=== PATIENT | male | born 1950 | race Caucasian/White ===

== ENCOUNTER 2019-02-23 00:02 | Outpatient (CLI) | payer MEDICARE ==
--- NOTE | 2019-02-23 21:24 | EKG ---
Test Reason : Blood Pressure : / mmHG Vent. Rate : 101 BPM Atrial Rate : 101 BPM P-R Int : 152 ms QRS Dur : 132 ms QT Int : 368 ms P-R-T Axes : 066 -71 057 degrees QTc Int : 477 ms Sinus tachycardia Right bundle branch block Left anterior fascicular block Bifascicular block Abnormal ECG No previous ECGs available Confirmed by VIPIN GURROLA, SAnthony ([id number]) on 02/23/2019 9:23:58 PM Referred By: JACQUIE Confirmed By:DR. Beatrice LEW MD
== END 2019-02-23 00:03 | disposition home or self-care (01) ==
LOC: LABBT 00:02
PROVIDERS: ATTEND Orthopaedic Surgery
DX: Z01.818 Encounter for other preprocedural examination (principal); M16.11 Unilateral primary osteoarthritis, right hip
CPT/HCPCS: 87081; 93005; 93010

== ENCOUNTER 2019-02-23 08:45 | Inpatient (IN) | payer MEDICARE, OTHER ==
[2019-02-23 08:21] VITALS: BMI 34.3
[2019-03-07] MEDS ORDERED: Tranexamic Acid 1,000 MG/10 ML VIAL ONE (06:44)
[2019-03-07] MEDS ORDERED: Sodium Chloride 0.9% 100 ML ONE (06:44)
[2019-03-07] MEDS ORDERED: Zolpidem Tartrate 5 MG TAB PO PRN ×2 (07:01→08:30)
[2019-03-07] MEDS ORDERED: Ondansetron PF 4 MG/2 ML Vial IVP PRN ×2 (07:01→08:30)
[2019-03-07] MEDS ORDERED: Promethazine HCl 25 MG/ML VIAL IM PRN ×3 (07:01→10:28)
[2019-03-07] MEDS ORDERED: diphenhydrAMINE 25 MG CAP PO PRN ×2 (07:01→08:30)
[2019-03-07] MEDS ORDERED: HYDROcodone/Acetaminophen 10/325 mg Tablet PO PRN ×2 (07:01)
[2019-03-07] MEDS ORDERED: Acetaminophen 325 MG TAB PO PRN (07:01)
[2019-03-07] MEDS ORDERED: Midazolam HCl 2 mg/2 ml Vial ONE (07:20)
[2019-03-07] MEDS ORDERED: Fentanyl 100 MCG/2 ML VIAL ONE ×3 (07:20→10:14)
[2019-03-07] MEDS ORDERED: Bupivacaine/Epinephrine 0.25% 30 ML VIAL ONE (08:26)
[2019-03-07] MEDS ORDERED: Bupivacaine 0.25% 10 ML VIAL EPIDURAL PRN (08:30)
[2019-03-07] MEDS ORDERED: traMADol HCl 50 MG TAB PO PRN ×2 (08:30)
[2019-03-07] MEDS ORDERED: Hydrocerin (Eucerin) Cream 120 gm Jar TOP PRN (08:30)
[2019-03-07] MEDS ORDERED: diphenhydrAMINE 50 MG/ML VIAL IVP PRN (08:30)
[2019-03-07] MEDS ORDERED: Ketorolac Tromethamine 30 MG/ML VIAL IVP PRN (08:30)
[2019-03-07] MEDS ORDERED: Promethazine HCl 25 MG SUPP PR PRN (08:30)
[2019-03-07] MEDS ORDERED: diphenhydrAMINE 50 MG/ML VIAL IM PRN (08:30)
[2019-03-07] MEDS ORDERED: HYDROcodone/Acetaminophen 5/325 mg Tablet PO PRN (08:30)
[2019-03-07] MEDS ORDERED: Naloxone HCl 0.4 mg/ml Vial IV PRN (08:30)
[2019-03-07] MEDS ORDERED: Naloxone HCl 0.4 mg/ml Vial IVP PRN (08:30)
[2019-03-07] MEDS ORDERED: Non-Formulary Item 1 EACH (Multivitamin [Multivitamins] 1 CAP) PO SCH (09:00)
[2019-03-07] MEDS ORDERED: Fentanyl 5 mcg/Bup 0.075% Cadd 100 ML EPIDURAL ONE (10:27)
[2019-03-07] MEDS ORDERED: Ondansetron HCl/PF 4 MG/2 ML Vial IVP PRN (10:28)
[2019-03-07] MEDS ORDERED: Promethazine HCl 25 MG/ML VIAL SLOW IVP PRN (10:28)
--- NOTE | 2019-03-07 12:13 | RAD ---
RIGHT HIP TWO VIEWS: 03/07/19 HISTORY: Postop total hip arthroplasty. FINDINGS/IMPRESSION: There are recent postop changes of a total hip arthroplasty in good position and alignment. Soft tiss ue air is present. POS: [facility]
--- NOTE | 2019-03-07 12:49 | OP ---
DATE OF PROCEDURE: 03/07/2019 PREOPERATIVE DIAGNOSIS: Degenerative joint disease, right hip. POSTOPERATIVE DIAGNOSIS: Degenerative joint disease, right hip. PROCEDURE PERFORMED: Right total hip arthroplasty using [place] Accolade 4.5 stem, 56 mm socket with a 36 mm ceramic standard head. FISHING BOAT MATE: Micky Aquino PA-C ESTIMATED BLOOD LOSS: 300. SPECIMENS: None. DRAINS: None. COMPLICATIONS: None. PROCEDURE IN DETAIL: After informed consent was obtained in the preoperative holding area, the patient was taken to the operative suite where general anesthesia was induced. The patient was then positioned in the lateral decubitus position. The hip was then prepped and draped in usual sterile fashion. The patient received preoperative antibiotics. Prior to incision, time-out was called and all members of the surgical team agreed upon site, surgeon, and patient. After this, a longitudinal incision was made directly over the trochanter, noted by palpation extending 2 fingerbreadths above and below the trochanter. The deeper subcutaneous layer was undermined with Bovie electrocautery. The iliotibial band was encountered and incised sharply and the plane below this was developed bluntly. A Charnley retractor was placed to hold this opened. The lateral aspect of the trochanter and the abductor muscles were encountered and then reflected anteriorly off the trochanter using Bovie electrocautery. Once this was completed, the anterior capsule was then encountered and identified and copious capsulotomy was carried out, exposing the femoral neck and head. Dislocation maneuver was then performed and an in situ provisional neck cut was then made using the oscillating saw. Attention was then turned to acetabular preparation and sequential reaming was carried out up to the appropriate diameter. A trial was then malleted into place with good firm resistance and no pullout. The permanent acetabular shell was then malleted squarely into place, as was the appropriate liner. Once completed, the wound was copiously irrigated and attention was then turned to femoral preparation. Flexion and external rotation were performed of the exposed thigh and femoral elevators were then placed at the proximal aspect of the wound. Canal finder was used to establish the length of the canal and sequential reaming was carried out, followed by broaching. Once the appropriate stability was established with the trial broaches with flexion, extension and rotational stability, we did trial with neutral and 2 mm offset incremental necks. Once the appropriate size was decided upon, with good stability noted with flexion, extension, internal and external rotation and shuck being negative, we removed the femoral trial broach and malletted into place the permanent prosthesis with good firm fit, which was also stable to rotation. Again, the hip felt very stable to flexion, extension, internal and external rotation. Leg lengths appeared near anatomic clinically and we were quite happy with prosthesis placement. Copious irrigation was then carried out through the entirety of the wound. Primary closure of the abductors was accomplished with interrupted #2 Vicryl [id number] stitches and the IT band was then closed with interrupted #2 Vicryl, oversewn with a #2 running barbed Quill stitch. Subcutaneous fascia was closed with running barbed Quill stitch and a subcuticular Monocryl barbed Quill stitch was used for skin closure and augmented with skin cement. A sterile dressing was applied. The procedure was terminated without any complication. All counts were correct. The patient was awakened in the operative suite and taken to the recovery room in stable condition. Job ID: [id number]
[2019-03-07] MEDS: Aspirin 81 mg Enteric Coated Tablet PO SCH ×2 (13:04→21:01)
[2019-03-07] MEDS: metFORMIN 500 MG TAB PO SCH ×2 (13:04→17:50)
[2019-03-07] MEDS: Sodium Chloride 0.9% 1,000 ML IV SCH ×2 (13:04→17:50)
[2019-03-07] MEDS ORDERED: Ketorolac Tromethamine 30 MG/ML VIAL IVP SCH (14:00)
[2019-03-07] MEDS ORDERED: Rocuronium Bromide 10 MG/ML (10ML VIAL) ONE (14:27)
[2019-03-07] MEDS ORDERED: Lidocaine 1% PF 5 ML VIAL ONE (14:27)
[2019-03-07] MEDS ORDERED: PROPOFOL 200 MG/20 ML VIAL ONE (14:27)
[2019-03-07] MEDS ORDERED: PHENYLEPHRINE-NS 100 MCG/ML 10 ML SYRINGE ONE (14:27)
[2019-03-07] MEDS ORDERED: Ondansetron PF 4 MG/2 ML Vial ONE (14:27)
[2019-03-07] MEDS ORDERED: ePHEDrine 50 MG/ML VIAL ONE (14:27)
[2019-03-07] MEDS: CEFAZOLIN 2 GM in Premix Bag 1 BAG IVPB SCH ×2 (14:56→22:39)
--- NOTE | 2019-03-07 18:24 | PDOC.PN ---
- Subjective Encounter Start Date: 03/07/19 Encounter Start Time: 18:10 Subjective: Consult for med mgmt. s/p R NIKKI with DJD, HTN, DM. Feels ok overall -: and no pain currently. No CP, SOB or N/V - Objective MAR Reviewed: Yes Vital Signs & Weight: Vital Signs (12 hours) Temp Pulse Resp BP Pulse Ox 03/07/19 17:52 98.6 F 103 H 16 133/71 98 03/07/19 12:00 97.7 F 88 16 103/68 97 Weight Weight 275 lb Additional Labs: Laboratory Tests 03/01/19 03/01/19 11:15 11:15 WBC 6.7 Hgb 15.0 Hct 43.0 Plt Count 218 Sodium 137 Potassium 4.1 Chloride 106 Carbon Dioxide 22 L Anion Gap 13 BUN 15 Creatinine 1.01 Estimated GFR (MDRD) 73 Glucose 182 H Calcium 9.7 EKG Reviewed by me: Yes (Sinus tachycardia, RBBB, Bifascicular block) Phys Exam - Physical Examination Constitutional: NAD HEENT: PERRLA, sclera anicteric, oral pharynx no lesions Neck: no nodes, no JVD, supple, full ROM Respiratory: no wheezing, no rales, no rhonchi, clear to auscultation bilateral S1, S2 Cardiovascular: RRR, no significant murmur, no rub, gallop Gastrointestinal: soft, non-tender, no distention, positive bowel sounds R hip edema, surgical dressing in place Musculoskeletal: pulses present Neurological: normal sensation, moves all 4 limbs Psychiatric: A&O x 3 Skin: normal turgor, cap refill <2 seconds Dx/Plan (1) DM II (diabetes mellitus, type II), controlled Code(s): E11.9 - TYPE 2 DIABETES MELLITUS WITHOUT COMPLICATIONS Status: Chronic Comment: ISS, serial accuchecks, Metformin 500mg BID, ADA (2) HTN (hypertension) Code(s): I10 - ESSENTIAL (PRIMARY) HYPERTENSION Status: Chronic Qualifiers: Hypertension type: essential hypertension Qualified Code(s): I10 - Essential (primary) hypertension Comment: Resume Enalapril and Hytrin, serial monitoring (3) Degenerative joint disease Code(s): M19.90 - UNSPECIFIED OSTEOARTHRITIS, UNSPECIFIED SITE Status: Chronic Qualifiers: Osteoarthritis location: hip Laterality: right Comment: See below (4) Status post total hip replacement, right Code(s): Z96.641 - PRESENCE OF RIGHT ARTIFICIAL HIP JOINT Status: Acute Comment: pain control, Joint U protocol, nerve block, DVT ppx - Plan PT/OT, older adult social work specialist, incentive spirometry, out of bed/ambulate, DVT proph w/ SCDs Stable currently -: Reviewed all hx, labs, rads and EKG's -: Resume Enalapril and Hytrin -: ISS for glycemic control -: AM lab: CBC * Thank you for the consult. Will continue to follow with primary service.
[2019-03-07] MEDS: Famotidine 20 MG TAB PO SCH (21:01)
[2019-03-07] MEDS: Terazosin HCl 5 MG CAP PO SCH (21:02)
[2019-03-07] MEDS: HYDROcodone/Acetaminophen 5/325 mg Tablet PO PRN (22:05)
[2019-03-08] MEDS: Fentanyl 5 mcg/Bup 0.075% Cadd 100 ML EPIDURAL SCH ×2 (02:23→19:16)
[2019-03-08 05:02] LABS: Hemoglobin 12.1 g/dL (14.0-18.0); Mean Corpuscular HGB CONC 33.3 g/dL (32.0-36.0); Mean Corpuscular Hemoglobin 31.3 pg (27.0-31.0); Mean Corpuscular Volume 93.9 fL (78.0-98.0); Mean Platelet Volume 7.5 fL (7.4-10.4); Platelet Count 171 thou/uL (130-400); RBC Distribution Width 12.3 % (11.5-14.5); Red Blood Cell (RBC) Count 3.87 mill/uL (4.70-6.10); White Blood Cell (WBC) Count 10.9 thou/uL (4.8-10.8)
[2019-03-08] MEDS: Sodium Chloride 0.9% 1,000 ML IV SCH ×3 (07:15→19:51)
--- NOTE | 2019-03-08 07:23 | PRG ---
DATE OF SERVICE: 03/08/2019 SUBJECTIVE: Kale is a 68-year-old white male, postop day #1 right total hip arthroplasty. He is doing relatively well. He has no complaints. He had difficulty sleeping last night and therefore he slept in the chair, but otherwise he did walk 160 feet yesterday evening. OBJECTIVE: VITAL SIGNS: Temperature 99, pulse 108, respiratory rate 20, blood pressure is 106/55. GENERAL: He is alert and oriented to person, place, time, situation, grossly nonfocal, and appropriate with examiner. EXTREMITIES: There is no strike through in his incision. His leg lengths were symmetric. There is no shortening or external rotation. LABORATORY DATA: Hemoglobin and hematocrit 12.1 and 36.3. IMPRESSION: 1. A 68-year-old white male, postop day #1 right total hip arthroplasty. 2. Mild postoperative asymptomatic hemorrhagic anemia. PLAN: Continue current care. He will be scheduled for transfer day after tomorrow to [facility]. Job ID: [id number]
[2019-03-08] MEDS: metFORMIN 500 MG TAB PO SCH ×2 (08:35→16:45)
[2019-03-08] MEDS: Ferrous Gluconate 324 MG TAB PO SCH ×2 (08:35→16:45)
[2019-03-08] MEDS: Aspirin 81 mg Enteric Coated Tablet PO SCH ×2 (08:35→19:58)
[2019-03-08] MEDS: HYDROcodone/Acetaminophen 5/325 mg Tablet PO PRN (08:35)
[2019-03-08] MEDS: Multivitamin W/ Minerals 1 TAB PO SCH (08:35)
[2019-03-08] MEDS: Senokot S 8.6-50 MG TAB PO SCH ×2 (08:35→19:58)
--- NOTE | 2019-03-08 08:44 | RAD ---
FRONTAL VIEW CHEST: Comparison: None available. Indication: Hypoxia. FINDINGS: Lungs are hyperinflated. There is no lobar consolidation, effusion, or pneumothorax. Cardiac silhouet te is accentuated by the portable technique. There is osseous degenerative change. IMPRESSION: 1. No focal consolidation. 2. Hyperinflated lungs indicating COPD. Correlate clinically. POS: OFF
[2019-03-08] MEDS ORDERED: Iopamidol 370 76% 100 ML VIAL ONE (10:34)
--- NOTE | 2019-03-08 11:09 | CT ---
Exam: CTA of the chest HISTORY: Fever and tachycardia COMPARISON: None TECHNIQUE: Multiple contiguous axial images were obtained a CTA of the chest with contrast per pulmon rebeca embolism protocol. 3-D oblique MIP reformats and direct coronal reformats were performed. FINDINGS: HEART: Normal in size without focal cardiac abnormality. Calcifications are seen in the coronary domonique diamante. PULMONARY ARTERIES: Normal in caliber without filling defects to suggest pulmonary emboli. MEDIASTINUM: No hilar or mediastinal lymphadenopathy. LUNGS: No focal infiltrates or masses. PLEURAL SPACE: No pleural effusion or pneumothorax. CHEST WALL SOFT TISSUES: Unremarkable VISUALIZED OSSEOUS STRUCTURES: Unremarkable VISUALIZED SUBDIAPHRAGMATIC STRUCTURES: No acute abnormality. The patient is status post cholecystect keanu. IMPRESSION: No evidence of pulmonary thromboembolism
--- NOTE | 2019-03-08 13:26 | PDOC.PN ---
- Subjective Encounter Start Date: 03/08/19 Encounter Start Time: 13:15 Subjective: f/u s/p R NIKKI POD #1 with nursing noting fever and tachycardia. -: Pt denies prominent cough, diarrhea. Appetite ok. No CP, n/v. - Objective MAR Reviewed: Yes Vital Signs & Weight: Vital Signs (12 hours) Temp Pulse Pulse Resp BP BP Pulse Ox 03/08/19 12:28 100 F H 113 H 16 105/65 93 L 03/08/19 11:25 100.8 F H 113 H 20 101/64 91 L 03/08/19 08:53 126 H 99/57 L 03/08/19 08:35 100.8 F H 123 H 22 H 113/65 93 L 03/08/19 06:52 98 03/08/19 04:00 99 F 108 H 20 106/55 L 98 Pulse Ox 03/08/19 12:28 03/08/19 11:25 03/08/19 08:53 92 L 03/08/19 08:35 03/08/19 06:52 03/08/19 04:00 Weight Weight 275 lb I&O: 03/07/19 03/08/19 03/09/19 06:59 06:59 06:59 Intake Total 1250 930 Output Total 500 1150 Balance 750 -220 Result Diagrams: 03/08/19 04:34 Additional Labs: Accuchecks 03/08/19 03/08/19 03/07/19 11:20 06:01 20:43 POC Glucose 161 H 145 H 147 H Radiology Reviewed by me: Yes (CTA chest - neg PE, PCXR - no acute infiltrates) EKG Reviewed by me: Yes (Tele - Sinus tachycardia) Phys Exam - Physical Examination Constitutional: NAD HEENT: PERRLA, sclera anicteric, oral pharynx no lesions Neck: no nodes, no JVD, supple, full ROM Respiratory: no wheezing, no rales, no rhonchi, clear to auscultation bilateral S1, S2 Cardiovascular: RRR, no significant murmur, no rub, gallop Gastrointestinal: soft, non-tender, no distention, positive bowel sounds R hip edema and surgical dressing in place Musculoskeletal: pulses present Neurological: normal sensation, moves all 4 limbs Psychiatric: A&O x 3 Skin: normal turgor, cap refill <2 seconds Deviation from normal: Fernández cath in place with maryam urine Dx/Plan (1) DM II (diabetes mellitus, type II), controlled Code(s): E11.9 - TYPE 2 DIABETES MELLITUS WITHOUT COMPLICATIONS Status: Chronic Comment: ISS, serial accuchecks, Metformin 500mg BID, ADA (2) HTN (hypertension) Code(s): I10 - ESSENTIAL (PRIMARY) HYPERTENSION Status: Chronic Qualifiers: Hypertension type: essential hypertension Qualified Code(s): I10 - Essential (primary) hypertension Comment: Resume Enalapril and Hytrin, serial monitoring (3) Degenerative joint disease Code(s): M19.90 - UNSPECIFIED OSTEOARTHRITIS, UNSPECIFIED SITE Status: Chronic Qualifiers: Osteoarthritis location: hip Laterality: right Comment: See below (4) Febrile Code(s): R50.9 - FEVER, UNSPECIFIED Status: Acute Comment: post-op fever noted, no focal etiology currently and no evidence for pneumonia or PE, continue IS, Tylenol/Toradol, clinical monitoring, remove Fernández catheter (5) Status post total hip replacement, right Code(s): Z96.641 - PRESENCE OF RIGHT ARTIFICIAL HIP JOINT Status: Acute Comment: pain control, Joint U protocol, nerve block, DVT ppx - Plan PT/OT, respiratory therapy, incentive spirometry, out of bed/ambulate, DVT proph w/SCDs Stable currently -: Incentive spirometry -: OOB with PT -: Tylenol/Toradol prn for fever -: Recommend d/c Fernández * AM lab: CBC * Plan for rehab at [facility] in 24-48h
[2019-03-08] MEDS ORDERED: Digoxin 0.5 MG/2 ML AMP SLOW IVP SCH (19:00)
[2019-03-08] MEDS: Diltiazem HCl 125 MG, Admixture Fee 1 EACH in Sodium Chloride 0.9% 100 ML IVPB SCH (19:52)
[2019-03-08] MEDS: Terazosin HCl 5 MG CAP PO SCH (19:58)
[2019-03-08] MEDS: Famotidine 20 MG TAB PO SCH (19:58)
[2019-03-09] MEDS: Sodium Chloride 0.9% 1,000 ML IV SCH ×2 (04:23→04:59)
[2019-03-09] MEDS: Diltiazem HCl 125 MG, Admixture Fee 1 EACH in Sodium Chloride 0.9% 100 ML IVPB SCH (04:59)
[2019-03-09 05:57] LABS: Hemoglobin 11.6 g/dL (14.0-18.0); Mean Corpuscular HGB CONC 33.6 g/dL (32.0-36.0); Mean Corpuscular Hemoglobin 31.5 pg (27.0-31.0); Mean Corpuscular Volume 93.7 fL (78.0-98.0); Mean Platelet Volume 7.6 fL (7.4-10.4); Platelet Count 169 thou/uL (130-400); RBC Distribution Width 12.3 % (11.5-14.5); White Blood Cell (WBC) Count 12.2 thou/uL (4.8-10.8)
--- NOTE | 2019-03-09 08:04 | PRG ---
DATE OF SERVICE: 03/09/2019 SUBJECTIVE: Kale has been moved to telemetry for monitoring since he has new onset atrial fibrillation from yesterday evening. Dr. Downey has evaluated the patient and initiated treatment plan for this. Otherwise, the patient feels fine this morning. He has no complaints of pain. OBJECTIVE: VITAL SIGNS: Temperature 97.7, pulse 88, respiratory rate 16, blood pressure is 119/56. GENERAL: He is alert, oriented to person, place, time, situation, grossly nonfocal, appropriate with the examiner. His incision is clean, closed. No new strikethrough. EXTREMITIES: He is neurovascularly intact in the right lower extremity. Leg lengths are equal. No external rotation appreciated. IMPRESSION: 1. A 68-year-old white male, postop day #2 right total hip arthroplasty. 2. New onset atrial fibrillation. 3. Mild postoperative hemorrhagic asymptomatic anemia. PLAN: Continue current care. Recheck tomorrow. Transfer to [facility] possibly tomorrow. Job ID: [id number]
[2019-03-09] MEDS: Senokot S 8.6-50 MG TAB PO SCH ×2 (08:40→21:05)
[2019-03-09] MEDS: metFORMIN 500 MG TAB PO SCH ×2 (08:40→18:30)
[2019-03-09] MEDS: Ferrous Gluconate 324 MG TAB PO SCH ×2 (08:40→18:30)
[2019-03-09] MEDS: Multivitamin W/ Minerals 1 TAB PO SCH (08:40)
[2019-03-09] MEDS: Aspirin 81 mg Enteric Coated Tablet PO SCH ×2 (08:41→21:05)
[2019-03-09] MEDS ORDERED: HYDROcodone/Acetaminophen 10/325 mg Tablet PO PRN ×2 (12:15→12:17)
--- NOTE | 2019-03-09 13:48 | PDOC.PN ---
- Subjective Encounter Start Date: 03/09/19 Encounter Start Time: 13:47 Mr. Kc was seen today in follow-up of Medical management post Hip replacement surgery - Objective MAR Reviewed: Yes Vital Signs & Weight: Vital Signs (12 hours) Temp Pulse Pulse Pulse Pulse Pulse Resp 03/09/19 11:51 97.8 F 93 20 03/09/19 10:45 89 91 106 H 110 H 03/09/19 07:55 98.6 F 92 20 03/09/19 07:30 03/09/19 03:57 97.7 F 88 16 BP BP BP Pulse Ox Pulse Ox Pulse Ox Pulse Ox 03/09/19 11:51 137/63 96 03/09/19 10:45 113/74 138/65 95 96 96 03/09/19 07:55 131/60 96 03/09/19 07:30 95 03/09/19 03:57 119/56 L 92 L Pulse Ox 03/09/19 11:51 03/09/19 10:45 96 03/09/19 07:55 03/09/19 07:30 03/09/19 03:57 Weight Admit Weight 275 lb Weight 275 lb I&O: 03/08/19 03/09/19 03/10/19 06:59 06:59 06:59 Intake Total 1250 3900 Output Total 500 2850 Balance 750 1050 Result Diagrams: 03/09/19 05:37 Additional Labs: Accuchecks 03/09/19 03/09/19 03/08/19 10:33 05:48 16:12 POC Glucose 166 H 133 H 199 H Phys Exam - Physical Examination HEENT: PERRLA Respiratory: no wheezing, no rales, no rhonchi, clear to auscultation bilateral Cardiovascular: RRR, no significant murmur, no rub Gastrointestinal: soft, non-tender, no distention, positive bowel sounds Musculoskeletal: no edema, pulses present Dx/Plan (1) Atrial fibrillation Code(s): I48.91 - UNSPECIFIED ATRIAL FIBRILLATION Status: Acute (2) Status post total hip replacement, right Code(s): Z96.641 - PRESENCE OF RIGHT ARTIFICIAL HIP JOINT Status: Acute Comment: pain control, Joint U protocol, nerve block, DVT ppx (3) DM II (diabetes mellitus, type II), controlled Code(s): E11.9 - TYPE 2 DIABETES MELLITUS WITHOUT COMPLICATIONS Status: Chronic Comment: ISS, serial accuchecks, Metformin 500mg BID, ADA (4) Degenerative joint disease Code(s): M19.90 - UNSPECIFIED OSTEOARTHRITIS, UNSPECIFIED SITE Status: Chronic Qualifiers: Osteoarthritis location: hip Laterality: right Comment: See below (5) HTN (hypertension) Code(s): I10 - ESSENTIAL (PRIMARY) HYPERTENSION Status: Chronic Qualifiers: Hypertension type: essential hypertension Qualified Code(s): I10 - Essential (primary) hypertension Comment: Resume Enalapril and Hytrin, serial monitoring - Plan * AFIB with RVR- it is noted that the patient developed AFIB with RVR and was placed on a Cardizem drip- he tells me he has never had AFIB before or was told he had an " irregular heart beat"- Will check an ECHO and Consult Cardiology * HTN - blood pressure is stable * DM- blood glucose is stable
--- NOTE | 2019-03-09 18:20 | CON ---
DATE OF CONSULTATION: HISTORY OF PRESENT ILLNESS: The patient is a 68-year-old gentleman, who presents for evaluation of an irregular heart rhythm. The patient has no previous cardiac history. The patient just underwent a hip surgery. The patient was found to have a rapid heart rate when he was undergoing physical therapy. He denied having any palpitations. The patient did not have any chest pain or chest discomfort. PAST MEDICAL HISTORY: Significant for; 1. Hypertension. 2. Diabetes mellitus. PAST SURGICAL HISTORY: He has had hip surgery, cholecystectomy, ankle surgery. SOCIAL HISTORY: Nonsmoker. FAMILY HISTORY: No strong family history of heart disease. MEDICATIONS: On admission; 1. Metformin 500 twice a day. 2. Hytrin 10 daily. 3. Enalapril 20 daily. 4. Aspirin 325 daily. 5. Zantac 150 daily. 6. Ibuprofen 400 b.i.d. REVIEW OF SYSTEMS: Ten-point system otherwise unremarkable. PHYSICAL EXAMINATION: GENERAL: Obese gentleman, in no acute distress. VITAL SIGNS: Blood pressure is 140/68. NECK: Showed no jugular venous distention. LUNGS: Clear to auscultation. HEART: Regular rate and rhythm. Normal S1, S2 with 1/6 systolic murmur. ABDOMEN: Distended. EXTREMITIES: Show mild edema. VASCULAR: Radial pulses are 2+. LABORATORY DATA: White blood cell count 12.2, hemoglobin 11.6, hematocrit 34.7, platelets are 169. His EKG revealed sinus tachycardia with a right bundle branch block and left anterior fascicular block. Second EKG revealed atrial fibrillation, right bundle-branch block, left anterior fascicular block. IMPRESSION: 1. New onset atrial fibrillation. 2. Hypertension. 3. Diabetes mellitus. 4. Obesity. 5. 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 This patient presents with new onset atrial fibrillation converted with IV Cardizem. We will start the patient on a low dose of Toprol. The patient has a CHADS-VASc score of 3, so he will need to be long-term on NOAC. We will check the patient's echocardiogram. We will follow this patient with you through his hospitalization. Please call my office. Job ID: [id number]
[2019-03-09] MEDS ORDERED: Metoprolol Tartrate 25 MG TAB PO SCH (19:15)
[2019-03-09] MEDS: Famotidine 20 MG TAB PO SCH (21:05)
[2019-03-09] MEDS: Terazosin HCl 5 MG CAP PO SCH (21:06)
[2019-03-10] MEDS: metFORMIN 500 MG TAB PO SCH (09:48)
[2019-03-10] MEDS: Senokot S 8.6-50 MG TAB PO SCH (09:48)
[2019-03-10] MEDS: Multivitamin W/ Minerals 1 TAB PO SCH (09:48)
[2019-03-10] MEDS: Aspirin 81 mg Enteric Coated Tablet PO SCH (09:48)
[2019-03-10] MEDS: Ferrous Gluconate 324 MG TAB PO SCH (09:48)
[2019-03-10 12:15] VITALS: TEMP 99.4
[2019-03-10 13:46] VITALS: BP 131/58
[2019-03-10] MEDS ORDERED: Apixaban 5 MG TAB PO SCH (21:00)
--- NOTE | 2019-03-11 03:01 | DIS ---
DATE OF ADMISSION: 03/07/2019 DATE OF DISCHARGE: 03/10/2019 DISCHARGE DISPOSITION: To senior living unit. DISCHARGE DIAGNOSES: 1. Atrial fibrillation with rapid ventricular response. 2. Severe osteoarthritis. 3. Status post right total hip replacement. 4. Diabetes mellitus, type 2. 5. Hypertension. DISCHARGE MEDICATIONS: Include: 1. Eliquis 5 mg twice a day. 2. Terazosin 10 mg at bedtime. 3. Ranitidine 150 mg at bedtime. 4. Multivitamin once a day. 5. Metformin 500 mg twice daily. 6. Glucosamine/chondroitin 1 tablet daily. 7. Enalapril 20 mg at bedtime. PROCEDURES DONE DURING ADMISSION: The patient had a CT angiogram of the chest, which showed no evidence of pulmonary embolism. The patient also had an echocardiogram, showing this was technically inadequate. There was impaired relaxation, compatible with diastolic dysfunction. The ejection fraction was not estimated. CODE STATUS: Full code. ALLERGIES: NO KNOWN DRUG ALLERGIES. HOSPITAL COURSE: Mr. Kc is a pleasant 68-year-old gentleman, who was admitted for an elective right total knee replacement. The patient had the procedure done on 03/07/2019. Postoperatively, he developed atrial fibrillation with rapid ventricular response. He was transferred to the telemetry unit, and the Hospitalist Service was consulted. He was placed on a Cardizem drip. Cardiology was consulted, and he was eventually transitioned to metoprolol for rate control and placed on Eliquis for stroke prevention, and after this, he was able to be transferred to the senior living unit for continued rehabilitation from his total hip replacement. Job ID: [id number]
== END 2019-03-10 15:18 | DRG 470 ==
LOC: SJJU 03-07 06:15 → 2NO 03-08 18:00
PROVIDERS: ADMIT Orthopaedic Surgery; ATTEND Orthopaedic Surgery
PROC: 0SR9039 Replacement of Right Hip Joint with Ceramic Synthetic Substitute, Cemented, Open Approach (ICD-10-PCS; principal; 2019-03-07)
DX: M16.11 Unilateral primary osteoarthritis, right hip (principal); I45.2 Bifascicular block; I10 Essential (primary) hypertension; E11.9 Type 2 diabetes mellitus without complications; E66.9 Obesity, unspecified; D64.9 Anemia, unspecified; R50.9 Fever, unspecified; I48.91 Unspecified atrial fibrillation; Z68.34 Body mass index [BMI] 34.0-34.9, adult; Z90.49 Acquired absence of other specified parts of digestive tract; Z79.82 Long term (current) use of aspirin; Z79.84 Long term (current) use of oral hypoglycemic drugs; Z79.899 Other long term (current) drug therapy
CPT/HCPCS: 36415; 36416; 71045; 71275; 85027; 93005; 93010; 93306; J0690; J1160; J1200; J2001; J2250; J2405; J2704; J3010; J3370; J3490; J7050; Q9967

== ENCOUNTER 2019-03-01 11:07 | Outpatient (CLI) | payer MEDICARE ==
[2019-03-01 11:32] LABS: #Basophils 0.1 thou/uL (0.0-0.2); #Eosinphils 0.2 thou/uL (0.0-0.7); #Lymphocytes 1.3 thou/uL (1.20-3.40); #Monocytes 0.6 thou/uL (0.11-0.59); #Neutrophils 4.5 thou/uL (1.40-6.50); %Basophils 0.8 % (0.0-1.0); %Eosinophils 3.7 % (0.0-10.0); %Lymphocytes 19.9 % (21.0-51.0); %Monocytes 8.8 % (0.0-10.0); %Neutrophils 66.8 % (42.0-75.0); Mean Corpuscular HGB CONC 34.9 g/dL (32.0-36.0); Mean Corpuscular Hemoglobin 31.9 pg (27.0-31.0); Mean Corpuscular Volume 91.5 fL (78.0-98.0); Mean Platelet Volume 7.6 fL (7.4-10.4); Platelet Count 218 thou/uL (130-400); RBC Distribution Width 12.4 % (11.5-14.5); White Blood Cell (WBC) Count 6.7 thou/uL (4.8-10.8)
[2019-03-01 11:38] LABS: Prothrombin Time 13.3 SEC (12.0-14.7)
[2019-03-01 11:52] LABS: Anion Gap 13 mmol/L (10-20); BUN (Urea Nitrogen) 15 mg/dL (8.4-25.7); Calc. Creatinine Clearance 0 mL/min (70-130); Calcium 9.7 mg/dL (7.8-10.44); Carbon Dioxide 22 mmol/L (23-31); Chloride 106 mmol/L (98-107); Estimated GFR-MDRD 73; Glucose 182 mg/dL (80-115); Potassium 4.1 mmol/L (3.5-5.1)
[2019-03-01 12:18] LABS: Sodium 137 mmol/L (136-145)
== END 2019-03-01 11:08 | disposition home or self-care (01) ==
LOC: LABBT 11:07
PROVIDERS: ATTEND Orthopaedic Surgery
DX: Z01.812 Encounter for preprocedural laboratory examination (principal); M16.11 Unilateral primary osteoarthritis, right hip
CPT/HCPCS: 80048; 85025; 85610; 86850; 86900; 86901

== ENCOUNTER 2020-03-29 09:52 | Outpatient (CLI) | payer MEDICARE, OTHER ==
--- NOTE | 2020-03-29 14:35 | RAD ---
LUMBAR SPINE: 03/29/20 Three views. Lateral views were obtained in neutral flexion and extension. INDICATIONS: Back pain. There are no comparison studies. Correlation made to a prior CT abdomen and pelvis from 2016 to asses s the number of lumbar vertebrae. There is a transitional vertebrae present. This transitional verteb ra will be labeled as S1 on this exam. There may be rudimentary ribs at the L1 level as noted on the prior CT. Vertebral bodies maintain height. There is mild chronic appearing wedging at L1 and L2. The degenerat domitila disc changes are most prominent at L5-S1 where there is loss of disc space with prominent anterio r osteophytes. There is a grade I spondylolisthesis at L5-S1. There is evidence of posterior spondylo lysis at this level. This anterolisthesis does not appear to significantly change with flexion or extension. Prominent facet hypertrophy. IMPRESSION: There is a transitional vertebra which is labeled as S1 on this exam. There is prominent degenerative disc changes and hypertrophic spurring at L5-S1 with a grade I anterolisthesis at L5-S1 and evidence of posterior spondylolysis. POS: [facility]
--- NOTE | 2020-03-29 15:24 | MRI ---
MRI LUMBAR SPINE WITHOUT CONTRAST: Date: 03/29/2020 COMPARISON: None. HISTORY: Chronic back pain, low back pain for months. TECHNIQUE: Multiplanar, multisequence MR imaging of the lumbar spine is provided without contrast media. FINDINGS: The sagittal STIR imaging demonstrates no focal area of osseous marrow edema. The sagittal STIR imaging demonstrates no focal area of osseous marrow edema. On the basis of five lumbar-type vertebral bodies, conus medullaris terminates at the T12-L1 level. T12-L1: There is bilateral facet hypertrophy. Intervertebral disc height and signal intensity within normal limits with no central canal or neural foraminal stenosis. L1-2: Mild bilateral facet hypertrophy. Intervertebral disc height and signal intensity within meli l limits with no significant central canal or neural foraminal stenosis. L2-3: There is disc space narrowing with disc desiccation and mild disc bulge. Bilateral facet hyper trophy noted. Mild central canal stenosis. Mild right neural foraminal stenosis. No significant left neural foraminal stenosis. L3-4: Bilateral facet hypertrophy with hypertrophy of ligamentum flavum. No significant central danilo l stenosis. Moderate right and mild left neural foraminal stenosis. L4-5: Bilateral L4 pars defects are suspected with anterolisthesis of L4 on L5 measuring 9.0 mm. The re is disc space narrowing with disc desiccation at L4-5. No central canal stenosis. There is severe neural foraminal stenosis bilaterally, right greater than left, with mass effect on the exiting bilat eral L4 nerve roots, right greater than left. L5-S1: There is narrowing of the intervertebral disc and mild disc desiccation. Mild bilateral facet hypertrophy with no significant central canal or neural foraminal stenosis is seen. The visualized retroperitoneal structures appear grossly unremarkable. Please note that there is a transitional L5 vertebral body and probable hypoplastic T12 ribs. IMPRESSION: Bilateral L4 pars defects with anterolisthesis of L4 on L5 and associated bilateral neural foraminal stenosis, right greater than left. Please note that there are probable hypoplastic ribs at T12 and a sacralized/transitional L5 vertebral body. Please see images on PACS for labeling of the vertebral emy dies. POS: [facility]
== END 2020-03-29 09:53 | disposition home or self-care (01) ==
LOC: SCSMRI 09:52
PROVIDERS: ATTEND Specialist
DX: M54.5 Low back pain (principal); M54.16 Radiculopathy, lumbar region; M51.37 Other intervertebral disc degeneration, lumbosacral region; M43.07 Spondylolysis, lumbosacral region; M48.061 Spinal stenosis, lumbar region without neurogenic claudication
CPT/HCPCS: 72100; 72148

== ENCOUNTER 2021-10-14 12:44 | Outpatient (CLI) | payer MEDICARE, BC | END 2021-10-14 12:45 | disposition home or self-care (01) | LOC: BICMRI 12:44 | PROVIDERS: ATTEND Specialist | DX: M51.16 Intervertebral disc disorders with radiculopathy, lumbar region (principal); M43.16 Spondylolisthesis, lumbar region; M47.26 Other spondylosis with radiculopathy, lumbar region; M48.061 Spinal stenosis, lumbar region without neurogenic claudication | CPT/HCPCS: 72110; 72148 ==

== ENCOUNTER 2023-06-28 10:00 | Observation (INO) | payer MEDICARE, BC ==
[2023-06-28 10:54] LABS: #Monocytes 1.3 thou/uL (0.11-0.59); #Neutrophils 5.7 thou/uL (1.40-6.50); %Basophils 0.5 % (0.0-1.0); %Eosinophils 0.4 % (0.0-10.0); %Lymphocytes 9.5 % (21.0-51.0); %Monocytes 16.2 % (0.0-10.0); %Neutrophils 72.8 % (42.0-75.0); Hematocrit 37.5 % (42.0-52.0); Hemoglobin 13.1 g/dL (14.0-18.0); Mean Corpuscular HGB CONC 34.9 g/dL (32.0-36.0); Mean Corpuscular Hemoglobin 30.6 pg (27.0-31.0); Mean Corpuscular Volume 87.6 fl (78.0-98.0); Platelet Count 165 10x3/uL (130-400); RBC Distribution Width 13.2 % (11.5-14.5); Red Blood Cell (RBC) Count 4.28 mill/uL (4.70-6.10); White Blood Cell (WBC) Count 7.9 10x3/uL (4.8-10.8)
[2023-06-28 11:18] LABS: ALT (SGPT) 29 U/L (8-55); AST (SGOT) 27 U/L (5-34); Albumin 3.3 g/dL (3.4-4.8); Alkaline Phosphatase 48 U/L (40-110); Anion Gap 16 mmol/L (10-20); BUN (Urea Nitrogen) 18 mg/dL (8.4-25.7); Calc. Creatinine Clearance 0 mL/min (70-130); Carbon Dioxide 18 mmol/L (23-31); Chloride 101 mmol/L (98-107); Estimated GFR 61; Globulin 3.2 g/dL (2.4-3.5); Glucose 319 mg/dL (83-110); Lipase 10 U/L (8-78); Potassium 4.2 mmol/L (3.5-5.1); Protein, Total 6.5 g/dL (5.8-8.1); Sodium 131 mmol/L (136-145)
[2023-06-28 12:47] LABS: Bacteria/HPF 2+ HPF (None Seen); Bilirubin 1+ (Negative); Blood, Urine 2+ (Negative); CAUTI Indications for Culture Acute Hematuria; Clarity Extra Turbid (Clear); Glucose, Urine (Dipstick) 150 mg/dL (Negative); Ketone, Urine Negative (Negative); Leukocyte 500 Leu/uL (Negative); Nitrite Negative (Negative); Protein, Urine (Dipstick) 300 mg/dL (Neg-Trace); RBC/HPF 21-50 HPF (0-3); Specific Gravity, Urine 1.027 (1.002-1.036); Squamous Epithelial 0-3 HPF (0-3); WBC/HPF Greater than 50 HPF (0-3); pH, Urine 5.5 (5.0-9.0)
[2023-06-28 12:58] LABS: Urine Culture Reflex Yes Yes
[2023-06-28] MEDS ORDERED: Vancomycin 1 GM/200 ML (FROZEN) BAG ONE (15:00)
[2023-06-28] MEDS ORDERED: cefTRIAXone (ROCEPHIN) 2 GM VIAL ONE ×2 (15:00→15:04)
[2023-06-28] MEDS ORDERED: Ondansetron PF 4 MG/2 ML Vial IVP PRN (15:38)
[2023-06-28] MEDS ORDERED: Acetaminophen 325 MG TAB PO PRN (15:38)
[2023-06-28] MEDS ORDERED: Glucagon 1 MG/ML KIT IM PRN (16:08)
[2023-06-28] MEDS ORDERED: Dextrose 5% in Water 1,000 ML IV PRN (16:08)
[2023-06-28] MEDS ORDERED: HumaLOG 300 UNITS/3 ML VIAL SC PRN ×2 (16:08)
[2023-06-28] MEDS ORDERED: Dextrose 50% Abboject 50 ML SYRINGE SLOW IVP PRN (16:08)
[2023-06-28] MEDS ORDERED: Sodium Chloride 0.9% 1,000 ML IV SCH (16:15)
[2023-06-28 16:33] LABS: Magnesium 1.2 mg/dL (1.6-2.6)
[2023-06-28 18:36] VITALS: BMI 34.1
[2023-06-28] MEDS ORDERED: Dronedarone HCl 400 MG TAB PO SCH (19:00)
[2023-06-28] MEDS ORDERED: Rivaroxaban 10 MG TAB PO SCH (19:03)
[2023-06-28] MEDS ORDERED: Magnesium Sulfate In Water 4 GM in Premix Bag 1 BAG IVPB SCH (19:30)
[2023-06-28] MEDS: Sodium Chloride 0.9% 1,000 ML IV SCH ×2 (19:58→20:01)
[2023-06-28] MEDS ORDERED: Metoprolol Tartrate 5 MG/5 ML VIAL IVP SCH (20:45)
[2023-06-29 05:50] LABS: #Basophils 0.1 thou/uL (0.0-0.2); #Eosinphils 0.2 thou/uL (0.0-0.7); #Monocytes 1.1 thou/uL (0.11-0.59); #Neutrophils 4.4 thou/uL (1.40-6.50); %Basophils 0.7 % (0.0-1.0); %Eosinophils 3.1 % (0.0-10.0); %Lymphocytes 15.4 % (21.0-51.0); %Monocytes 15.5 % (0.0-10.0); %Neutrophils 64.6 % (42.0-75.0); Hematocrit 36.2 % (42.0-52.0); Hemoglobin 12.4 g/dL (14.0-18.0); Mean Corpuscular HGB CONC 34.3 g/dL (32.0-36.0); Mean Corpuscular Hemoglobin 31.2 pg (27.0-31.0); Mean Platelet Volume 10.4 fL (7.4-10.4); Platelet Count 189 10x3/uL (130-400); RBC Distribution Width 13.4 % (11.5-14.5); Red Blood Cell (RBC) Count 3.98 mill/uL (4.70-6.10); White Blood Cell (WBC) Count 6.8 10x3/uL (4.8-10.8)
[2023-06-29 05:56] LABS: Hemoglobin A1c 9.9 % (4.0-6.0)
[2023-06-29 06:15] LABS: ALT (SGPT) 27 U/L (8-55); AST (SGOT) 26 U/L (5-34); Albumin 3.3 g/dL (3.4-4.8); Alkaline Phosphatase 50 U/L (40-110); Anion Gap 12 mmol/L (10-20); BUN (Urea Nitrogen) 19 mg/dL (8.4-25.7); Bilirubin, Direct 0.2 mg/dL (0.1-0.3); Bilirubin, Total 0.4 mg/dL (0.2-1.2); Calc. Creatinine Clearance 98 mL/min (70-130); Calcium 8.8 mg/dL (7.8-10.44); Carbon Dioxide 23 mmol/L (23-31); Chloride 102 mmol/L (98-107); Estimated GFR 68; Glucose 253 mg/dL (83-110); Magnesium 1.8 mg/dL (1.6-2.6); Potassium 4.2 mmol/L (3.5-5.1); Protein, Total 6.3 g/dL (5.8-8.1); Sodium 133 mmol/L (136-145)
[2023-06-29] MEDS ORDERED: dilTIAZem 30 MG TAB PO SCH (09:00)
[2023-06-29] MEDS ORDERED: Rosuvastatin 10 MG TAB PO SCH (09:00)
[2023-06-29] MEDS ORDERED: Alogliptin 25 MG TAB PO SCH (09:00)
[2023-06-29] MEDS: Sodium Chloride 0.9% 1,000 ML IV SCH (09:03)
[2023-06-29] MEDS: Dronedarone HCl 400 MG TAB PO SCH ×2 (09:05→16:23)
[2023-06-29] MEDS ORDERED: PROPOFOL 20 ML ONE (10:00)
[2023-06-29] MEDS ORDERED: PROPOFOL 200 MG/20 ML VIAL ONE (10:35)
[2023-06-29] MEDS ORDERED: Lidocaine 1% PF 5 ML VIAL ONE (10:35)
[2023-06-29] MEDS ORDERED: cefTRIAXone\\ROCEPHIN 2 GM in Sodium Chloride 0.9% 100 ML IVPB SCH (16:00)
[2023-06-29 16:26] VITALS: BP 121/66; TEMP 98.8
[2023-06-29] MEDS ORDERED: Rivaroxaban 10 MG TAB PO SCH (17:00)
== END 2023-06-29 18:40 | disposition home or self-care (01) ==
LOC: ERS 10:00 → SUATTDRO 10:00 → ERHOLD 15:25 → 2SW 18:09 → SURG A 06-29 09:52 → 2SW 06-29 09:54
PROVIDERS: ADMIT Family Medicine; ATTEND Emergency Medicine
DX: I48.20 Chronic atrial fibrillation, unspecified (principal); I08.1 Rheumatic disorders of both mitral and tricuspid valves; E11.9 Type 2 diabetes mellitus without complications; I10 Essential (primary) hypertension; N39.0 Urinary tract infection, site not specified; E87.1 Hypo-osmolality and hyponatremia; N12 Tubulo-interstitial nephritis, not specified as acute or chronic; I95.9 Hypotension, unspecified; E66.9 Obesity, unspecified; Z68.34 Body mass index [BMI] 34.0-34.9, adult; Z79.01 Long term (current) use of anticoagulants; Z79.899 Other long term (current) drug therapy; Z90.49 Acquired absence of other specified parts of digestive tract; Z96.641 Presence of right artificial hip joint
CPT/HCPCS: 71045; 74176; 76770; 80048; 80076; 81001; 82550; 82962 ×2; 83036; 83605; 83690; 83735 ×2; 83880; 84484; 85025; 87040; 87077; 87086; 87186; 92960; 93005 ×2; 93312; 96375; G0378 ×3; J3370; J3475; 36415; 36416; 80053; 84443; 93010; 96361; 96365; 96367; J0696; J1815; J2704; J3490; J7050

== ENCOUNTER 2023-10-28 07:53 | Outpatient (CLI) | payer MEDICARE, BC | END 2023-10-28 07:54 | disposition home or self-care (01) | LOC: BICCT 07:53 | PROVIDERS: ATTEND Urology | DX: N28.9 Disorder of kidney and ureter, unspecified (principal); N39.0 Urinary tract infection, site not specified; K57.30 Diverticulosis of large intestine without perforation or abscess without bleeding; M47.817 Spondylosis without myelopathy or radiculopathy, lumbosacral region; M43.17 Spondylolisthesis, lumbosacral region; M16.12 Unilateral primary osteoarthritis, left hip | CPT/HCPCS: 74178; 81001; 82565; 87086 ==

== ENCOUNTER 2024-04-21 09:56 | Inpatient (IN) | payer MEDICARE, BC ==
[2024-04-21] MEDS ORDERED: dilTIAZem 25 MG/5 ML VIAL ONE (10:35)
[2024-04-21 10:40] LABS: #Basophils Less than 0.03 10x3/uL (0.0-0.2); #Eosinphils Less than 0.03 10x3/uL (0.0-0.7); %Basophils 0.2 % (0.0-1.0); %Lymphocytes 3.8 % (21.0-51.0); %Monocytes 8.9 % (0.0-10.0); %Neutrophils 86.5 % (42.0-75.0); Hematocrit 31.7 % (42.0-52.0); Hemoglobin 10.9 g/dL (14.0-18.0); Mean Corpuscular HGB CONC 34.4 g/dL (32.0-36.0); Mean Corpuscular Hemoglobin 29.9 pg (27.0-31.0); Mean Corpuscular Volume 86.8 fL (78.0-98.0); Mean Platelet Volume 10.3 fL (7.4-10.4); Platelet Count 150 10x3/uL (130-400); RBC Distribution Width 14.2 % (11.5-14.5); Red Blood Cell (RBC) Count 3.65 mill/uL (4.70-6.10)
[2024-04-21 11:08] LABS: ALT (SGPT) 27 U/L (8-55); AST (SGOT) 27 U/L (5-34); Albumin 3.1 g/dL (3.4-4.8); Alkaline Phosphatase 46 U/L (40-110); Anion Gap 18 mmol/L (10-20); BUN (Urea Nitrogen) 49 mg/dL (8.4-25.7); Bilirubin, Total 0.7 mg/dL (0.2-1.2); Calc. Creatinine Clearance 0 mL/min (70-130); Calcium 9.1 mg/dL (7.8-10.44); Carbon Dioxide 17 mmol/L (23-31); Chloride 97 mmol/L (98-107); Estimated GFR 28; Globulin 3.5 g/dL (2.4-3.5); Glucose 323 mg/dL (83-110); Potassium 4.3 mmol/L (3.5-5.1); Protein, Total 6.6 g/dL (5.8-8.1); Sodium 128 mmol/L (136-145)
[2024-04-21 11:32] LABS: Troponin I 0.024 ng/mL (< 0.028)
[2024-04-21 11:51] LABS: Actual Bicarbonate (HCO3v) 19.6 mEq/L (22-28); Base Excess -4.4 mEq/L (-2.0 to +3.0); Calcium, Ionized (venous) 1.14 mmol/L (1.16-1.32); Chloride (VBG) 97 mmol/L (98-106); Hematocrit-VBG 34 % (42.0-52.0); Hemoglobin (Hb) 11.6 g/dL (12.6-17.4); Potassium (VBG) 4.23 mmol/L (3.70-5.30); Sodium 127 mmol/L (133-146); pH (venous) 7.396 (7.32-7.43)
[2024-04-21 12:22] LABS: Bacteria/HPF 4+ HPF (None Seen); Bilirubin Negative (Negative); Blood, Urine 1+ (Negative); CAUTI Indications for Culture Dysuria,urgency,freq; Glucose, Urine (Dipstick) 30 mg/dL (Negative); Ketone, Urine Negative (Negative); Leukocyte 500 Leu/uL (Negative); Nitrite Negative (Negative); Protein, Urine (Dipstick) 50 mg/dL (Neg-Trace); Specific Gravity, Urine 1.019 (1.002-1.036); Squamous Epithelial 0-3 HPF (0-3); Urobilinogen 3 mg/dL (Less than 2); WBC/HPF Greater than 50 HPF (0-3)
[2024-04-21] MEDS ORDERED: Cefepime 2 GM VIAL ONE (12:22)
[2024-04-21] MEDS ORDERED: Sodium Chloride 0.9% 100 ML ONE (12:22)
[2024-04-21 12:31] LABS: Clarity Cloudy (Clear)
[2024-04-21 12:33] LABS: Urine Culture Reflex Yes Yes
[2024-04-21] MEDS ORDERED: Calcium Carbonate 500 MG ChewTAB PO PRN (12:53)
[2024-04-21] MEDS ORDERED: Senokot S 8.6-50 MG TAB PO PRN (12:53)
[2024-04-21] MEDS ORDERED: Ondansetron PF 4 MG/2 ML Vial IVP PRN (12:53)
[2024-04-21] MEDS ORDERED: Dextrose 5% in Water 1,000 ML IV PRN (13:00)
[2024-04-21] MEDS ORDERED: Glucagon 1 MG/ML KIT IM PRN (13:00)
[2024-04-21] MEDS ORDERED: Dextrose 50% Abboject 50 ML SYRINGE SLOW IVP PRN (13:00)
[2024-04-21] MEDS ORDERED: Vancomycin 1 GM/200 ML (FROZEN) BAG ONE (13:14)
[2024-04-21] MEDS ORDERED: Acetaminophen 500 MG TAB ONE (13:17)
[2024-04-21 14:14] LABS: Lactic Acid 1.3 mmol/L (0.5-2.2)
[2024-04-21] MEDS: Sodium Chloride 0.9% 1,000 ML IV SCH (14:50)
[2024-04-21] MEDS: AMPicillin 1 GM in Sodium Chloride 0.9% 100 ML IVPB SCH (14:50)
[2024-04-21] MEDS ORDERED: Rivaroxaban 10 MG TAB ONE (17:20)
[2024-04-21] MEDS ORDERED: HumaLOG 300 UNITS/3 ML VIAL ONE (17:51)
[2024-04-21] MEDS: HumaLOG 300 UNITS/3 ML VIAL SC PRN (17:53)
[2024-04-21] MEDS: Sodium Chloride 0.9% 500 ML IV SCH (17:53)
[2024-04-21] MEDS: Dronedarone HCl 400 MG TAB PO SCH (18:06)
[2024-04-21] MEDS: Rivaroxaban 15 MG TAB PO SCH (18:06)
[2024-04-21 19:45] LABS: Anion Gap 15 mmol/L (10-20); BUN (Urea Nitrogen) 41 mg/dL (8.4-25.7); Calc. Creatinine Clearance 0 mL/min (70-130); Calcium 8.9 mg/dL (7.8-10.44); Carbon Dioxide 19 mmol/L (23-31); Chloride 101 mmol/L (98-107); Estimated GFR 44; Glucose 278 mg/dL (83-110); Potassium 3.9 mmol/L (3.5-5.1); Sodium 131 mmol/L (136-145)
[2024-04-21] MEDS: Terazosin HCl 5 MG CAP PO SCH (20:50)
[2024-04-21] MEDS: Rosuvastatin 10 MG TAB PO SCH (20:50)
[2024-04-21] MEDS: Acetaminophen 325 MG TAB PO PRN (20:53)
[2024-04-21 22:26] VITALS: BMI 35.0
[2024-04-22 04:34] LABS: #Basophils Less than 0.03 10x3/uL (0.0-0.2); %Basophils 0.3 % (0.0-1.0); %Eosinophils 1.7 % (0.0-10.0); %Lymphocytes 9.1 % (21.0-51.0); %Monocytes 13.5 % (0.0-10.0); %Neutrophils 75.1 % (42.0-75.0); Hematocrit 30.4 % (42.0-52.0); Mean Corpuscular HGB CONC 32.9 g/dL (32.0-36.0); Mean Corpuscular Hemoglobin 29.5 pg (27.0-31.0); Mean Corpuscular Volume 89.7 fL (78.0-98.0); Mean Platelet Volume 10.5 fL (7.4-10.4); Platelet Count 150 10x3/uL (130-400); RBC Distribution Width 14.1 % (11.5-14.5); Red Blood Cell (RBC) Count 3.39 mill/uL (4.70-6.10)
[2024-04-22 05:10] LABS: ALT (SGPT) 23 U/L (8-55); AST (SGOT) 31 U/L (5-34); Albumin 2.8 g/dL (3.4-4.8); Alkaline Phosphatase 40 U/L (40-110); Anion Gap 13 mmol/L (10-20); BUN (Urea Nitrogen) 36 mg/dL (8.4-25.7); Bilirubin, Total 0.5 mg/dL (0.2-1.2); Calc. Creatinine Clearance 89 mL/min (70-130); Calcium 9.1 mg/dL (7.8-10.44); Carbon Dioxide 19 mmol/L (23-31); Chloride 105 mmol/L (98-107); Estimated GFR 59; Globulin 3.3 g/dL (2.4-3.5); Glucose 165 mg/dL (83-110); Magnesium 1.9 mg/dL (1.6-2.6); Potassium 4.2 mmol/L (3.5-5.1); Protein, Total 6.1 g/dL (5.8-8.1); Sodium 133 mmol/L (136-145)
[2024-04-22] MEDS: Alogliptin 6.25 MG TAB PO SCH (08:59)
[2024-04-22] MEDS: dilTIAZem CD 120 MG CAP PO SCH (13:05)
[2024-04-22] MEDS: cefTRIAXone\\ROCEPHIN 1 GM in Sodium Chloride 0.9% 100 ML IVPB SCH (13:07)
[2024-04-22] MEDS: Rivaroxaban 10 MG TAB PO SCH (16:09)
[2024-04-23] MEDS: dilTIAZem CD 120 MG CAP PO SCH (08:40)
[2024-04-23] MEDS: glipiZIDE XL 2.5 mg ER.TAB PO SCH (08:40)
[2024-04-23] MEDS ORDERED: GLIPIZIDE 2.5 MG PO SCH (09:00)
[2024-04-23] MEDS: metFORMIN 500 MG TAB PO SCH (17:14)
[2024-04-23] MEDS: HumaLOG 300 UNITS/3 ML VIAL SC PRN (20:48)
[2024-04-25] MEDS ORDERED: PROPOFOL 200 MG/20 ML VIAL ONE (08:02)
[2024-04-25] MEDS: Metoprolol Tartrate 5 MG (5 mL) VIAL IVP SCH (13:51)
[2024-04-25 17:07] VITALS: BP 118/58; TEMP 98
== END 2024-04-25 19:35 | disposition home or self-care (01) | DRG 872 ==
LOC: SUATTDRO 09:56 → ERS 09:56 → ERHOLD 12:53 → 2SW 20:05
PROVIDERS: ADMIT Internal Medicine; ATTEND Internal Medicine
PROC: B245ZZ4 Ultrasonography of Left Heart, Transesophageal (ICD-10-PCS; principal; 2024-04-25)
PROC: 5A2204Z Restoration of Cardiac Rhythm, Single (ICD-10-PCS; 2024-04-25)
DX: A41.51 Sepsis due to Escherichia coli [E. coli] (principal); E87.1 Hypo-osmolality and hyponatremia; N39.0 Urinary tract infection, site not specified; N17.9 Acute kidney failure, unspecified; I48.0 Paroxysmal atrial fibrillation; E78.5 Hyperlipidemia, unspecified; I12.9 Hypertensive chronic kidney disease with stage 1 through stage 4 chronic kidney disease, or unspecified chronic kidney disease; I45.10 Unspecified right bundle-branch block; I35.0 Nonrheumatic aortic (valve) stenosis; I08.1 Rheumatic disorders of both mitral and tricuspid valves; G47.33 Obstructive sleep apnea (adult) (pediatric); M19.90 Unspecified osteoarthritis, unspecified site; R29.6 Repeated falls; E66.9 Obesity, unspecified; E11.22 Type 2 diabetes mellitus with diabetic chronic kidney disease; Z96.641 Presence of right artificial hip joint; Z79.899 Other long term (current) drug therapy; Z90.49 Acquired absence of other specified parts of digestive tract; Z98.890 Other specified postprocedural states; Z68.35 Body mass index [BMI] 35.0-35.9, adult
CPT/HCPCS: 36415; 36416; 70450; 71045; 80053; 81001; 82805; 83605; 83735; 84484; 85025; 87040; 87077; 87086; 87149; 87186; 92960; 93005; 93010; 93312; 96361; 96365; 96375; J0290; J0692; J0696; J1815; J2704; J3370-JW; J3490; J7030; J7050

== ENCOUNTER 2024-05-03 07:16 | Outpatient (CLI) | payer MEDICARE, BC | END 2024-05-03 07:17 | disposition home or self-care (01) | LOC: BICCT 07:16 | PROVIDERS: ATTEND Urology | DX: N39.0 Urinary tract infection, site not specified (principal); N28.89 Other specified disorders of kidney and ureter; K57.30 Diverticulosis of large intestine without perforation or abscess without bleeding | CPT/HCPCS: 74170 ==

== ENCOUNTER 2024-11-10 07:55 | Outpatient (CLI) | payer MEDICARE, BC ==
[2024-11-10] MEDS ORDERED: Iopamidol 370 76% 100 ML VIAL ONE (10:45)
== END 2024-11-10 07:56 | disposition home or self-care (01) ==
LOC: BICCT 07:55
PROVIDERS: ATTEND Urology
DX: M17.12 Unilateral primary osteoarthritis, left knee (principal); Z12.5 Encounter for screening for malignant neoplasm of prostate; N40.0 Benign prostatic hyperplasia without lower urinary tract symptoms; N39.0 Urinary tract infection, site not specified; N28.89 Other specified disorders of kidney and ureter
CPT/HCPCS: 36415; 74170; 82565; Q9967

== ENCOUNTER 2024-11-23 11:16 | Outpatient (CLI) | payer MEDICARE, BC ==
[2024-11-23 13:12] LABS: #Basophils 0.06 10x3/uL (0.0-0.2); %Basophils 0.6 % (0.0-1.0); %Eosinophils 1.2 % (0.0-10.0); %Lymphocytes 10.6 % (21.0-51.0); %Monocytes 7.9 % (0.0-10.0); %Neutrophils 79.4 % (42.0-75.0); Hematocrit 33.2 % (42.0-52.0); Hemoglobin 10.3 g/dL (14.0-18.0); Mean Corpuscular Hemoglobin 24.7 pg (27.0-31.0); Mean Corpuscular Volume 79.6 fL (78.0-98.0); Mean Platelet Volume 10.2 fL (7.4-10.4); Platelet Count 261 10x3/uL (130-400); RBC Distribution Width 15.7 % (11.5-14.5); Red Blood Cell (RBC) Count 4.17 mill/uL (4.70-6.10)
[2024-11-23 13:45] LABS: Anion Gap 14 mmol/L (10-20); BUN (Urea Nitrogen) 26 mg/dL (8.4-25.7); Calc. Creatinine Clearance 0 mL/min (70-130); Calcium 9.6 mg/dL (7.8-10.44); Carbon Dioxide 21 mmol/L (23-31); Chloride 105 mmol/L (98-107); Estimated GFR 65; Glucose 208 mg/dL (83-110); Potassium 4.8 mmol/L (3.5-5.1); Sodium 135 mmol/L (136-145)
[2024-11-23 15:09] LABS: INR-International Normal Ratio 1.6; Prothrombin Time 19.1 sec (12.0-14.7)
== END 2024-11-23 11:17 | disposition home or self-care (01) ==
LOC: LABBT 11:16
PROVIDERS: ATTEND Orthopaedic Surgery
DX: Z01.818 Encounter for other preprocedural examination (principal); M17.12 Unilateral primary osteoarthritis, left knee
CPT/HCPCS: 80048; 85025; 85610; 87081; 93005; 93010